=== PATIENT | female | born 1960 | race Caucasian/White ===

== ENCOUNTER 2020-08-15 16:16 | Emergency (ER) | payer MEDICARE, SELFPAY ==
[2020-08-15 16:41] VITALS: BP 146/73; PULSE 69; RESP 14; TEMP 36.3; O2SAT 98; BMI 23.6
--- NOTE | 2020-08-15 16:58 | XRR_ITS ---
PROCEDURE INFORMATION: Exam: XR Left Elbow Exam date and time: 08/15/2020 4:59 PM Age: 60 years old Clinical indication: Injury or trauma; Fall; Blunt trauma (contusions or hematomas); Elbow; Left; Additional info: Fall injury TECHNIQUE: Imaging protocol: XR Left elbow. Views: 3 or more views. COMPARISON: No relevant prior studies available. FINDINGS: Bones/joints: There is a transverse displaced fracture of the olecranon. The remainder of the visible bones do not show acute abnormality. Soft tissues: There is soft tissue effusion is seen in the posterior and medial elbow and in the olecranon bursa. XR/XR elbow LT min 3V* 10180 IMPRESSION: 1. Transverse displaced fracture of the olecranon. 2. Diffuse soft tissue effusion posterior and medial elbow
--- NOTE | 2020-08-15 17:17 | W.ED.FALL ---
Documented by User: MILKA Peguero 08/15/20 20:19 HPI - Fall General: Chief Complaint: Fall Stated Complaint: Fall/Lt elbow Swelling Time Seen by Provider: 08/15/20 17:03 Source: patient Mode of arrival: ambulatory Limitations: no limitations History of Present Illness: HPI Narrative: Patient is a nice 60-year-old female who presents to ED today for evaluation of a left elbow injury. Patient tells me she was attacked by her neighbors dog who is up-to-date on immunizations and states she accidentally tripped over the dog landing on her left elbow. She has several puncture ire[place] to her left lower leg. She does not seem concerned with these. She denies any other injury sustained during the fall. She denies striking her head or LOC. No neck or back pain. She does not complain of numbness, tingling, loss of sensation to her arm. She does tell me she feels like the hand is cooler than normal. MD complaint: fall Onset (ago): hour(s) Fall from: standing Place fall occurred: home Loss of consciousness: None Prolonged down time: no Symptoms prior to fall: none Context: tripped/slipped Location of injury - extremities: Left: elbow Associated symptoms-after fall: Denies chest pain, difficulty walking, headache(s) or neck pain Review of Systems Const: Denies: fever(s), chills, body aches, fatigue or malaise Eyes: Denies: change in vision or blurry vision Card: Denies: chest pain Resp: Denies: dyspnea GI: Denies: nausea or vomiting Musc: Reports: extremity pain, joint pain and joint swelling; Denies: neck pain or back pain Skin/Breast: Reports: other (dog bite) Neuro: Denies: headache(s), numbness in extremities, sensory changes, difficulty walking, frequent falls or dizziness Physical Exam Const: COMMON NORMALS: no acute distress, average body habitus, patient oriented x3, no limitations, healthy appearing, alert and well nourished GENERAL APPEARANCE: cooperative ORIENTATION/CONSCIOUSNESS: Yes awake, Yes oriented to person, Yes oriented to place and Yes oriented to time Extremity: OTHER: pt with marked swelling of her L distal humerus and elbow; she complains of feeling like her arm/hand are cold; radial pulses are equal bilaterally and she has good cap refill but hand does feel cooler than the R Neuro: COMMON NORMALS: patient oriented x3, moves all extremities, no focal motor deficits and no sensory deficits noted SENSORIUM/ORIENTATION: Yes alert, Yes oriented to person, Yes oriented to place and Yes oriented to time Skin: NARRATIVE SKIN EXAM: several puncture ireland to L posterior lower leg/calf from dog bite; all are extremely small 1-2mm and do not require closure Course Vital Signs: Vital signs: Vital Signs Temperature 97.3 F L 08/15/20 16:41 Pulse Rate 78 08/15/20 20:40 Respiratory Rate 14 08/15/20 16:41 Blood Pressure 136/74 08/15/20 18:21 Pulse Oximetry 95 08/15/20 20:40 MDM - Fall MDM Narrative: Medical decision making narrative: Initial exam I did feel like her left hand was cooler than her right. Radial pulses were intact and equal bilaterally. She maintained brisk cap refill. Re-examination revealed hands were equal temperature however due to initial concern I spoke to Dr. Stevens who go recommended we go ahead with CTA to evaluate for vascular injury. This was negative. Patient will need prompt follow-up with orthopedics for her olecranon fracture. Patient was placed in a splint/sling. Information placed with case management to get her proper follow-up. We will place her on antibiotics for her dog bites. Lab Data: Labs: Lab Results 08/15/20 Range/Units 18:20 Sodium 138 (136-145) mmol/L Potassium 3.9 (3.5-5.1) mmol/L Chloride 101 (98-107) mmol/L Carbon Dioxide 27 (22-29) mmol/L Anion Gap 13.9 (5-19) BUN 9 (8-23) mg/dL Creatinine 0.6 (0.5-0.9) mg/dL GFR Calculation 101.6 (90-130) mL/min Glucose 93 (65-115) mg/dL Calculated Osmolal ity 284 L (285-295) mOsm/k g Calcium 9.2 (8.5-10.5) mg/dL Imaging Data^: XR L elbow: Radiologist's impression: [address] [place] [address] XRay Report Signed Patient: Breann LoyaZaheerjuanito #: [id number] : 1960Acct#:[id number] Age/Sex: 60 / FADM Date: 08/15/20 Loc: ERRoom/Bed: Attending Dr: Ordering Provider/Ordering MD: Nabil Hawkins Date of Service: 08/15/20 Procedure(s): XR elbow LT min 3V* 73200 Accession Number(s): [id number] Report Number: [id number] PROCEDURE INFORMATION: Exam: XR Left Elbow Exam date and time: 08/15/2020 4:59 PM Age: 60 years old Clinical indication: Injury or trauma; Fall; Blunt trauma (contusions or hematomas); Elbow; Left; Additional info: Fall injury TECHNIQUE: Imaging protocol: XR Left elbow. Views: 3 or more views. COMPARISON: No relevant prior studies available. FINDINGS: Bones/joints: There is a transverse displaced fracture of the olecranon. The remainder of the visible bones do not show acute abnormality. Soft tissues: There is soft tissue effusion is seen in the posterior and medial elbow and in the olecranon bursa. XR/XR elbow LT min 3V* 01300 IMPRESSION: 1. Transverse displaced fracture of the olecranon. 2. Diffuse soft tissue effusion posterior and medial elbow Dictated By:Raghu Andrade Signed By:Zac Andrade Date/Time:08/15/201814 DD/ 13 CTA L UE: Radiologist's impression: [address] [address] [address] Scan Report Signed Patient: Breann Loya Unit #: [id number] : 1960 Age/Sex: 60 / F ADM Date: 08/15/20 Loc: ER Room/Bed: Attending Dr: Ordering Provider/Ordering MD: Abby Max Date of Service: 08/15/20 Procedure(s): [place] [address] Accession Number(s): [id number] Report Number: [id number] PROCEDURE INFORMATION: Exam: CTA Left Upper Extremity With Contrast Exam date and time: 08/15/2020 7:01 PM Age: 60 years old Clinical indication: Injury or trauma; Fall; Fracture, traumatic injury; Closed fracture; Ulna; Left; Proximal end; Additional info: Olecranon fx/hemarthrosis; Complains arm feels cold TECHNIQUE: Imaging protocol: Computed tomographic angiography of the Left upper extremity with intravenous contrast material, including non-contrast images if performed. 3D rendering (Not supervised by radiologist): MIP and/or 3D reconstructed images were created by the technologist. Total images: 423 Radiation optimization: All CT scans at this facility use at least one of these dose optimization techniques: automated exposure control; mA and/or kV adjustment per patient size (includes targeted exams where dose is matched to clinical indication); or iterative reconstruction. Contrast material: OMNIPAQUE 350; Contrast volume: 95 ml; Contrast route: INTRAVENOUS (IV); COMPARISON: CR ([facility], ) 08/15/2020 5:18 PM RADIATION DOSE METRICS: Total DLP (mGy-cm): 668.16 FINDINGS: Bones/joints: Simple comminuted avulsion fracture of the olecranon process of the ulna with intra-articular component. Maximum distraction 10 mm. No visible significant step-off. Soft tissues: Triceps tendon appears intact. Extensive soft tissue contusion and edema extensor surface of the elbow with associated traumatic olecranon bursitis. Other findings: No vascular compromise. No visible extravasation of [place]. [place] [address] IMPRESSION: 1. Simple comminuted avulsion fracture of the olecranon process of the ulna with intra-articular component. Maximum distraction 10 mm. 2. No vascular compromise identified. 3. Extensive soft tissue contusion and edema extensor surface of the elbow with associated traumatic olecranon bursitis. 4. Triceps tendon intact. Radiation Dose CTDIVOL = (mGy): DLP = 668.16 (mGy-cm) Dictated By: Alex Ann Signed By: Alex Ann Signed Date/Time: 08/15/201957 DD/ 56 Discharge Plan Discharge Patient Disposition: Home Clinical Impression: Dog bite of left lower leg Qualifiers: Encounter type: initial encounter Qualified Code(s): S81.852A - Open bite, left lower leg, initial encounter Closed fracture of left olecranon process Qualifiers: Encounter type: initial encounter Qualified Code(s): S52.022A - Displaced fracture of olecranon process without intraarticular extension of left ulna, initial encounter for closed fracture Condition: Stable Prescriptions: New hydrocodone-acetaminophen 5-325 mg tablet 1 tab PO Q4H PRN (Reason: pain) Qty: 20 RF: 0 Augmentin 875-125 mg tablet 1 tab PO Q12H 7 Days Qty: 14 RF: 0 No Action Apple Cider Vinegar Gummies 2 tab PO BID RF: 0 Entocort EC 3 mg Capsule,Delayed,Extend.Release 9 mg PO QAM RF: 0 Cymbalta 60 mg Capsule,Delayed Release(Dr/Ec) 120 mg PO QAM RF: 0 Tylenol Extra Strength 500 mg Tablet 1,000 mg PO PRN RF: 0 Discharge Orders: Discharge ED (Routine); Ordered 08/15/20 Ordered By: Abby Max Referrals: August Wright MD [Primary Care Provider] - Patient Instructions: Fractures - Elbow, Animal Bite (ED), Elbow Fracture in Adults (ED), Opioid Safety Activity Restrictions/Additional Instructions: [facility] is committed to fighting the nationwide opiate epidemic. We are providing ALL patients with information regarding opiate safety. If you received opiate pain medication during your stay or if you received a prescription for opiate pain medication-please review this handout. If not, you may disregard. Thank you. As discussed case management should contact you early this week to set you up with your follow-up appointment for orthopedics. Need to begin your antibiotics immediately to prevent infection from your dog bites. Please keep these wounds clean with warm soapy water several times daily. Signs of infection include redness, swelling, drainage, increased pain. Return to the emergency department in regards to your elbow for worsening or uncontrollable pain, color changes to your hand, loss of sensation, coolness/pallor, or any other concerns you may have. Coding Level of Care Code ED Taker Away for Roxanne Fwd Exam Expanded Problem Focused Documented by User: David Rita LaDO viviana 08/17/20 06:49 HPI - Fall General: Chief Complaint: Fall Stated Complaint: Fall/Lt elbow Swelling Time Seen by Provider: 08/15/20 17:03 Course Vital Signs: Vital signs: Vital Signs Temperature 97.3 F L 08/15/20 16:41 Pulse Rate 78 08/15/20 20:40 Respiratory Rate 14 08/15/20 16:41 Blood Pressure 136/74 08/15/20 18:21 Pulse Oximetry 95 08/15/20 20:40 MDM - Fall MDM Narrative: Medical decision making narrative: Reviewed case with nurse practitioner. Agree with assessment and plan. Lab Data: Labs: Lab Results 08/15/20 Range/Units 18:20 Sodium 138 (136-145) mmol/L Potassium 3.9 (3.5-5.1) mmol/L Chloride 101 (98-107) mmol/L Carbon Dioxide 27 (22-29) mmol/L Anion Gap 13.9 (5-19) BUN 9 (8-23) mg/dL Creatinine 0.6 (0.5-0.9) mg/dL GFR Calculation 101.6 (90-130) mL/min Glucose 93 (65-115) mg/dL Calculated Osmolal ity 284 L (285-295) mOsm/k g Calcium 9.2 (8.5-10.5) mg/dL Discharge Plan Discharge Patient Disposition: Home Clinical Impression: Dog bite of left lower leg Qualifiers: Encounter type: initial encounter Qualified Code(s): S81.852A - Open bite, left lower leg, initial encounter Closed fracture of left olecranon process Qualifiers: Encounter type: initial encounter Qualified Code(s): S52.022A - Displaced fracture of olecranon process without intraarticular extension of left ulna, initial encounter for closed fracture Condition: Stable Prescriptions: New hydrocodone-acetaminophen 5-325 mg tablet 1 tab PO Q4H PRN (Reason: pain) Qty: 20 RF: 0 Augmentin 875-125 mg tablet 1 tab PO Q12H 7 Days Qty: 14 RF: 0 No Action Apple Cider Vinegar Gummies 2 tab PO BID RF: 0 Entocort EC 3 mg Capsule,Delayed,Extend.Release 9 mg PO QAM RF: 0 Cymbalta 60 mg Capsule,Delayed Release(Dr/Ec) 120 mg PO QAM RF: 0 Tylenol Extra Strength 500 mg Tablet 1,000 mg PO PRN RF: 0 Discharge Orders: Discharge ED (Routine); Ordered 08/15/20 Ordered By: Abby Max Referrals: August Wright MD [Primary Care Provider] - Patient Instructions: Fractures - Elbow, Animal Bite (ED), Elbow Fracture in Adults (ED), Opioid Safety Activity Restrictions/Additional Instructions: [facility] is committed to fighting the nationwide opiate epidemic. We are providing ALL patients with information regarding opiate safety. If you received opiate pain medication during your stay or if you received a prescription for opiate pain medication-please review this handout. If not, you may disregard. Thank you. As discussed case management should contact you early this week to set you up with your follow-up appointment for orthopedics. Need to begin your antibiotics immediately to prevent infection from your dog bites. Please keep these wounds clean with warm soapy water several times daily. Signs of infection include redness, swelling, drainage, increased pain. Return to the emergency department in regards to your elbow for worsening or uncontrollable pain, color changes to your hand, loss of sensation, coolness/pallor, or any other concerns you may have. Coding Level of Care Code ED Taker Away for Roxanne Fwradha Exam Expanded Problem Focused
--- NOTE | 2020-08-15 17:45 | CTR_ITS ---
PROCEDURE INFORMATION: Exam: CTA Left Upper Extremity With Contrast Exam date and time: 08/15/2020 7:01 PM Age: 60 years old Clinical indication: Injury or trauma; Fall; Fracture, traumatic injury; Closed fracture; Ulna; Left; Proximal end; Additional info: Olecranon fx/hemarthrosis; Complains arm feels cold TECHNIQUE: Imaging protocol: Computed tomographic angiography of the Left upper extremity with intravenous contrast material, including non-contrast images if performed. 3D rendering (Not supervised by radiologist): MIP and/or 3D reconstructed images were created by the technologist. Total images: 423 Radiation optimization: All CT scans at this facility use at least one of these dose optimization techniques: automated exposure control; mA and/or kV adjustment per patient size (includes targeted exams where dose is matched to clinical indication); or iterative reconstruction. Contrast material: OMNIPAQUE 350; Contrast volume: 95 ml; Contrast route: INTRAVENOUS (IV); COMPARISON: CR ([facility], ) 08/15/2020 5:18 PM RADIATION DOSE METRICS: Total DLP (mGy-cm): 668.16 FINDINGS: Bones/joints: Simple comminuted avulsion fracture of the olecranon process of the ulna with intra-articular component. Maximum distraction 10 mm. No visible significant step-off. Soft tissues: Triceps tendon appears intact. Extensive soft tissue contusion and edema extensor surface of the elbow with associated traumatic olecranon bursitis. Other findings: No vascular compromise. No visible extravasation of [place]. [place] [address] IMPRESSION: 1. Simple comminuted avulsion fracture of the olecranon process of the ulna with intra-articular component. Maximum distraction 10 mm. 2. No vascular compromise identified. 3. Extensive soft tissue contusion and edema extensor surface of the elbow with associated traumatic olecranon bursitis. 4. Triceps tendon intact. Radiation Dose CTDIVOL = (mGy): DLP = 668.16 (mGy-cm)
[2020-08-15 18:21] VITALS: BP 136/74; PULSE 65; O2SAT 98
[2020-08-15 18:50] LABS: Anion Gap 13.9 (5-19); Blood Urea Nitrogen 9 mg/dL (8-23); Calcium 9.2 mg/dL (8.5-10.5); Carbon Dioxide 27 mmol/L (22-29); Chloride 101 mmol/L (98-107); Glomerular Filtration Rate 101.6 mL/min (90-130); Glucose 93 mg/dL (65-115); Osmolality Calculated 284 mOsm/kg (285-295); Potassium 3.9 mmol/L (3.5-5.1); Sodium 138 mmol/L (136-145)
[2020-08-15] MEDS: iohexol 350 mg/mL 100 mL Btl IV (19:02)
[2020-08-15] MEDS: HYDROmorphone 1 mg/mL INJ 1 mL 0.5 MG IVP (19:20)
[2020-08-15] MEDS: ondansetron 2 mg/ML SDV 2 mL 4 MG IVP (19:20)
[2020-08-15] MEDS: amoxicillin-clav 875-125 mg Tablet 1 TAB PO (20:24)
[2020-08-15 20:40] VITALS: PULSE 78; O2SAT 95
--- NOTE | 2020-08-17 08:56 | DCPLANNER ---
pe manager had message to schedule a follow up appointment for patient with ortho. pe manager called the ortho clinic, spoke with Aminata, gave clinic patients information. pe manager was told that patients information would be printed and reviewed. Clinic will call patient with appointment information.
--- NOTE | 2020-08-18 07:49 | DCPLANNER ---
Patient has a follow up appointment scheduled for Tuesday, August 18, 2020 at 8:[address] Garcia at ortho. Clinic will call patient with appointment information.
--- NOTE | 2020-08-28 08:24 | DCPLANNER ---
Patient had a follow up appointment scheduled for 08.18.20 with ortho - patient did attend appointment.
== END 2020-08-15 20:44 | disposition home or self-care (01) ==
PROVIDERS: Emergency Provider Physician Assistant; PCP Family Medicine
DX: S52.022A Displaced fracture of olecranon process without intraarticular extension of left ulna, initial encounter for closed fracture (principal); S81.852A Open bite, left lower leg, initial encounter; W54.0XXA Bitten by dog, initial encounter
CPT/HCPCS: 29125; 73080; 73206; 80048; 96374; 96375; 99283; J1170; J2405; Q9967

== ENCOUNTER → 2020-08-18 09:53 | Outpatient (BNVA) | payer MEDICARE, SELFPAY | PROVIDERS: PCP Family Medicine; Visit Provider Orthopaedic Surgery | DX: Z01.812 Encounter for preprocedural laboratory examination (principal); S52.023A Displaced fracture of olecranon process without intraarticular extension of unspecified ulna, initial encounter for closed fracture; X58.XXXA Exposure to other specified factors, initial encounter | CPT/HCPCS: 87635 ==

== ENCOUNTER 2020-08-21 05:55 | Day surgery (SDC) | payer MEDICARE, SELFPAY ==
[2020-08-20 16:13] VITALS: BMI 24.3
[2020-08-21] VITALS (11 sets, daily range): BP systolic 147–162; BP diastolic 74–99; PULSE 71–88; RESP 16–20; TEMP 36.2–36.5; O2SAT 95–97
--- NOTE | 2020-08-21 | XR_ITS ---
WS: [id number] Left elbow, C-arm fluoroscopy views, 08/21/2020 Clinical Data: orif left elbow Comparison: Left elbow, 08/15/2020. Findings: The olecranon fracture has been repaired with a posterior plate and multiple screws. There are longit udinal screws aiding the reduction. XR/XR elbow LT 2V 19530 Impression: Internal fixation of olecranon fracture of left ulna.
--- NOTE | 2020-08-21 | SCC_ITS ---
Procedure Done: ORIF left olecranon fracture 25.9 seconds of fluoroscopic guidance, for a cumulative dose of 0.69 mGy, was provided to Dr. Garcia by the radiology department. C-arm images of the LEFT elbow were saved for the patient's permanent record. [facility]
--- NOTE | 2020-08-21 06:07 | ANES.PREANE2 ---
Pre-Anesthetic Assessment Pre-Anesthetic Assessment: Height/Weight: Height 1.75 m Weight 74.843 kg Preop Diagnosis: olecranon fracture Proposed Procedure: Operation Date: 08/21/20 07:00 Proposed Procedures p ORIF left olecranon fracture 86615 s52.022a(Left) - Ben Garcia DO Social: Social History: Tobacco and No alcohol Exam: Pre-Anes Outpt Exam: alert, oriented x 3, clear to auscultation bilaterally and regular rate & rhythm Airway: Submandibular: WNL Cervical ROM: WNL MP: 2 Pulmonary: Pulmonary: COPD CV/HEM: CV/HEM: None reported : : None reported Hepatic: Hepatic: None reported GI: GI: None reported Metabolic: Metabolic: None reported Musc/skel: Musc/skel: OA/DJD Neuropsych: Neuropsych: Depression Anesthetic Plan: ASA status: 3 Anesthesia: General PFSH Anesthesia PFSH: Social History (Updated 08/18/20 @ 08:54 by Yusra Lux LPN) Smoking and tobacco status: current every day smoker cigarettes Packs smoked per day: 0.5 Alcohol intake: current Alcohol intake frequency: holidays/special occasions only Data Anesthesia Cardiac Studies: No Data to Display
[2020-08-21] MEDS: sodium chloride 0.9% 1,000 ML 30 ML IV (06:38)
--- NOTE | 2020-08-21 06:40 | W.PM.OPSUD ---
Surgery/Procedure H&P Update DATE OF PROCEDURE: August 21, 2020 DATE H&P PERFORMED: 08/13/20 H&P UPDATE INFORMATION: I have reviewed H&P completed within last 30 days, I have examined patient prior to procedure and No changes to prior documentation PREOP DIAGNOSIS: olecranon fracture PLANNED PROCEDURE: Operation Date: 08/21/20 07:00 Proposed Procedures p ORIF left olecranon fracture 91095 s52.022a(Left) - Ben Garcia DO
--- NOTE | 2020-08-21 08:10 | PM.OP ---
Operative Report Date of procedure: August 21, 2020 Pre-op Diagnosis: olecranon fracture Post-op diagnosis: same Procedure Done: ORIF left olecranon fracture Surgeon: Ben Garcia Anesthesia: General Estimated blood loss (mL): 5 Tourniquet time (min): 30 Condition: stable Disposition: PACU Procedure: Patient was brought to the operative suite after undergoing anesthesia was placed into the lateral decubitus position. All areas impingement were well-padded. Patient was then prepped and draped normal sterile fashion. Skin incision made over the posterior aspect of the arm. Olecranon was exposed fracture ends were exposed fracture was then reduced with [id number] reduction clamps and then K wires. And then a [employer] olecranon plate was placed. 3 screws were placed through the proximal fragment and 3 screws placed for the distal fragment. AP and lateral fluoroscopy ensured that the fracture and hardware in the prone position. K wires were removed and patient was brought through full range of motion felt to be stable. Wound was then irrigated and closed with Vicryl and nylon suture. Sterile dressings were applied and patient was placed in a posterior splint transferred to the PACU in stable condition.
[2020-08-21] MEDS: fentaNYL 50 mcg/mL INJ 2mL IVP ×2 (08:29→08:34)
[2020-08-21] MEDS: ketorolac 30 mg/mL INJ (08:36)
[2020-08-21] MEDS: HYDROmorphone 1 mg/mL INJ 1 mL 0.5 MG IVP (08:36)
--- NOTE | 2020-08-21 08:50 | ANE.PACU2 ---
Inpatient post-anesthesia follow up: Airway intact: Yes Vital signs: Temperature 97.7 F Pulse Rate 76 Respiratory Rate 19 Blood Pressure 148/94 Pulse Oximetry 97 Oxygen Delivery Me thod Room Air Oxygen Flow Rate 6 Fraction of Inspir ed Oxygen Hydration adequate: Yes Nausea and vomiting: No Pain level: 4 Mental status: Baseline
[2020-08-21] MEDS: HYDROcodone-acetaminophen 5-325 mg Tablet 2 TAB PO (09:20)
--- NOTE | 2020-08-21 10:43 | SUR.PHASEII ---
0955: patient states her pain is at 8/10, but has taken 2 pain pills, ice is applied, patient pain 4/10 per faces and she states she is comfortable enough to go home.
== END 2020-08-21 10:10 | disposition home or self-care (01) ==
PROVIDERS: PCP Family Medicine; Visit Provider Orthopaedic Surgery
PROC: (CPT 24685; principal; 2020-08-21 07:00)
DX: S52.022A Displaced fracture of olecranon process without intraarticular extension of left ulna, initial encounter for closed fracture (principal); W01.0XXA Fall on same level from slipping, tripping and stumbling without subsequent striking against object, initial encounter; J44.9 Chronic obstructive pulmonary disease, unspecified; M19.90 Unspecified osteoarthritis, unspecified site; F17.210 Nicotine dependence, cigarettes, uncomplicated
CPT/HCPCS: 24685; 73070; 76000; C1713; J0690; J1170; J1885; J2405; J2704; J3010; J7030

== ENCOUNTER → 2020-10-01 11:21 | Outpatient (BNVA) | payer MEDICARE, SELFPAY | PROVIDERS: PCP Family Medicine; Visit Provider Orthopaedic Surgery | DX: Z48.89 Encounter for other specified surgical aftercare; S52.022D Displaced fracture of olecranon process without intraarticular extension of left ulna, subsequent encounter for closed fracture with routine healing; X58.XXXD Exposure to other specified factors, subsequent encounter | CPT/HCPCS: 73080 ==

== ENCOUNTER 2020-10-13 06:00 | Outpatient (RCR) | payer MEDICARE, SELFPAY | END 2020-11-09 23:59 | disposition home or self-care (01) | LOC: GOT 06:00 | PROVIDERS: PCP Family Medicine; Referring Provider Orthopaedic Surgery; Visit Provider Orthopaedic Surgery | DX: S52.021D Displaced fracture of olecranon process without intraarticular extension of right ulna, subsequent encounter for closed fracture with routine healing (principal); X58.XXXD Exposure to other specified factors, subsequent encounter; Z47.89 Encounter for other orthopedic aftercare; Z98.890 Other specified postprocedural states | CPT/HCPCS: 97035; 97110; 97140; 97166 ==

== ENCOUNTER 2020-11-10 06:00 | Outpatient (RCR) | payer MEDICARE, SELFPAY | END 2020-12-09 23:59 | disposition home or self-care (01) | LOC: GOT 06:00 | PROVIDERS: PCP Family Medicine; Referring Provider Orthopaedic Surgery; Visit Provider Orthopaedic Surgery | DX: Z47.89 Encounter for other orthopedic aftercare (principal) | CPT/HCPCS: 97035; 97110; 97140 ==

== ENCOUNTER → 2020-11-12 11:24 | Outpatient (BNVA) | payer MEDICARE, SELFPAY | PROVIDERS: PCP Family Medicine; Visit Provider Orthopaedic Surgery | DX: Z48.89 Encounter for other specified surgical aftercare; S52.022A Displaced fracture of olecranon process without intraarticular extension of left ulna, initial encounter for closed fracture; X58.XXXA Exposure to other specified factors, initial encounter | CPT/HCPCS: 73080 ==

== ENCOUNTER 2020-12-10 06:00 | Outpatient (RCR) | payer MEDICARE, SELFPAY | END 2021-01-09 23:59 | disposition home or self-care (01) | LOC: GOT 06:00 | PROVIDERS: PCP Family Medicine; Referring Provider Orthopaedic Surgery; Visit Provider Orthopaedic Surgery | DX: S52.022D Displaced fracture of olecranon process without intraarticular extension of left ulna, subsequent encounter for closed fracture with routine healing (principal); X58.XXXD Exposure to other specified factors, subsequent encounter | CPT/HCPCS: 97035; 97110; 97140 ==

== ENCOUNTER → 2020-12-24 10:10 | Outpatient (BNVA) | payer MEDICARE, SELFPAY | PROVIDERS: PCP Family Medicine; Visit Provider Orthopaedic Surgery | DX: S52.023A Displaced fracture of olecranon process without intraarticular extension of unspecified ulna, initial encounter for closed fracture (principal); S52.022A Displaced fracture of olecranon process without intraarticular extension of left ulna, initial encounter for closed fracture; Z48.89 Encounter for other specified surgical aftercare; M79.602 Pain in left arm; X58.XXXA Exposure to other specified factors, initial encounter | CPT/HCPCS: 73080 ==

== ENCOUNTER 2021-01-04 12:42 | Outpatient (CLI) | payer MEDICARE, SELFPAY ==
--- NOTE | 2021-01-04 13:00 | CT_ITS ---
WS: [id number] Exam: CT humerus LT wo con* [id number] Date/Time of Exam: 01/04/2021 12:47 PM Reason For Exam: M79.602 - Pain in left arm DLP: All CT scans at [facility] use at least one of these dose optimization techniques: automat ed exposure control; mA and/or kV adjustment per patient size (includes targeted exams where dose is matched to clinical indication); or iterative reconstruction. The humerus is evaluated in the axial plane with sagittal and coronal reformatted images. No fracture or dislocation. No bone destruction identified. Articular relationships are intact. No so ft tissue masses or abnormal soft tissue fluid collections are seen. Hardware is noted in the proxima l posterior ulna. CT/CT humerus LT wo con* [id number] IMPRESSION: 1. No fracture or other significant finding. 2. No significant myofascial or other soft tissue abnormality. 3. Hardware noted in the proximal posterior ulna.
== END 2021-01-04 12:43 | disposition home or self-care (01) ==
PROVIDERS: PCP Family Medicine; Visit Provider Orthopaedic Surgery
DX: M79.602 Pain in left arm (principal)
CPT/HCPCS: 73200

== ENCOUNTER → 2021-08-10 14:54 | Outpatient (BNVA) | payer MEDICARE, SELFPAY | PROVIDERS: PCP Family Medicine; Visit Provider Orthopaedic Surgery | DX: S52.022D Displaced fracture of olecranon process without intraarticular extension of left ulna, subsequent encounter for closed fracture with routine healing (principal); W19.XXXD Unspecified fall, subsequent encounter | CPT/HCPCS: 73080 ==

== ENCOUNTER 2022-03-29 13:29 | Outpatient (CLI) | payer MEDICARE, SELFPAY ==
--- NOTE | 2022-03-29 | XRR_ITS ---
PROCEDURE INFORMATION: Exam: XR Cervical Spine Exam date and time: 03/29/2022 1:51 PM Age: 61 years old Clinical indication: Neck pain; Prior surgery; Surgery type: C spine; Patient HX: History-- kink in neck for 5 days, pain from shoulder blade to neck TECHNIQUE: Imaging protocol: Radiologic exam of the cervical spine. Views: 2 or 3 views. COMPARISON: No relevant prior studies available. FINDINGS: Bones/joints: Prior anterior cervical fusion from C5 to C7. Curvature of the upper cervical spine convex to the right The cervical vertebral bodies maintain height and sagittal alignment. Fusion at the C5-C6 and C6-C7 disc spaces. Mild disc and uncovertebral joint degeneration at C3-C4 and C4-C5. The atlantodens interval is not widened. No fracture. Soft tissues: No prevertebral soft tissue swelling. XR/XR cervical spine 3V* [id number] IMPRESSION: Postoperative and degenerative changes.
== END 2022-03-29 13:30 | disposition home or self-care (01) ==
LOC: RAD 13:31
PROVIDERS: PCP Family Medicine; Visit Provider Family Medicine
DX: M54.2 Cervicalgia (principal); Z98.1 Arthrodesis status
CPT/HCPCS: 72040

== ENCOUNTER → 2023-04-10 11:54 | Outpatient (BNVA) | payer MEDICARE, SELFPAY | PROVIDERS: PCP Family Medicine; Visit Provider Specialist | DX: R20.0 Anesthesia of skin; R20.2 Paresthesia of skin; M75.02 Adhesive capsulitis of left shoulder | CPT/HCPCS: 73030; 99204 ==

== ENCOUNTER 2023-04-28 13:40 | Outpatient (CLI) | payer MEDICARE, SELFPAY ==
--- NOTE | 2023-04-28 13:45 | IR_ITS ---
WS: [id number] LEFT SHOULDER ARTHROGRAM UNDER FLUOROSCOPY. PRIOR TO CT EVALUATION. HISTORY: left shoulder pain COMPARISON: None available. FLUOROSCOPY TIME: 1min [id number] # of spot films: 1 Procedure, risks and complications were explained to the patient. Consent has been obtained. Under fluoroscopic guidance the skin is marked over the medial superior third of the humeral head, cl eansed with ChloraPrep and anesthetized with lidocaine. 22-gauge spinal needle is inserted to the cor amish of the humeral head. Approximately 12 cc of Omnipaque were injected without difficulty. No compli cations. IMPRESSION: Uncomplicated LEFT shoulder shoulder joint injection prior to CT.
--- NOTE | 2023-04-28 13:45 | CT_ITS ---
WS: [id number] CT LEFT SHOULDER ARTHROGRAM HISTORY: left shoulder pain Technique: All CT scans at [facility] use at least one of these dose optimization techniques: automated exposure control; mA and/or kV adjustment per patient size (includes targeted exams where dose is matched to clinical indication); or iterative reconstruction. DLP: 295.28 mGy.cm COMPARISON: 02/22/2023. Contrast was injected into the LEFT shoulder joint under fluoroscopy. There is good contrast opacification of the LEFT shoulder joint. No fractures or dislocations are garcía ntified. There is no contrast extending from the intra-articular injection into the subacromial or madsen bdeltoid spaces. There is mild narrowing of the AC joint with small osteophytes encroaching upon the supraspinatus muscle anteriorly. Very mild acromial impingement. Distal acromion without significant impingement and no downsloping. There is no significant muscle atrophy. There is a very tiny amount of contrast extending into the madsen perior labrum. This may represent a very small tear which extends just slightly anteriorly through th e labrum. No joint effusion. Biceps tendon is in good position. IMPRESSION: 1. No rotator cuff tear. No contrast extends into the subacromial or subdeltoid bursa. 2. Very minimal AC joint osteophyte encroachment upon the supraspinatus. 3. No significant subacromial impingement. 4. There is a tiny amount of increased contrast in the superior labrum with slight extension anterior ly. Suspicious for short labral tear
== END 2023-04-28 13:41 | disposition home or self-care (01) ==
LOC: RAD 13:41
PROVIDERS: PCP Family Medicine; Visit Provider Specialist
DX: M25.512 Pain in left shoulder (principal)
CPT/HCPCS: 23350; 73201; 77002; Q9966

== ENCOUNTER → 2023-05-01 09:40 | Outpatient (BNVA) | payer MEDICARE, SELFPAY | PROVIDERS: PCP Family Medicine; Visit Provider Nurse Practitioner | DX: M25.812 Other specified joint disorders, left shoulder (principal); M25.512 Pain in left shoulder; G89.29 Other chronic pain; M19.012 Primary osteoarthritis, left shoulder | CPT/HCPCS: 99214 ==

== ENCOUNTER → 2023-06-16 09:08 | Outpatient (BNVA) | payer MEDICARE, SELFPAY | PROVIDERS: PCP Family Medicine; Visit Provider Specialist | DX: G56.10 Other lesions of median nerve, unspecified upper limb (principal); M25.812 Other specified joint disorders, left shoulder; M25.512 Pain in left shoulder; R20.0 Anesthesia of skin | CPT/HCPCS: 95911 ==

== ENCOUNTER 2023-07-27 06:00 | Outpatient (RCR) | payer MEDICARE, SELFPAY | END 2023-08-10 23:59 | disposition home or self-care (01) | LOC: GPT 06:00 | PROVIDERS: Visit Provider Orthopaedic Surgery Adult Reconstructive Orthopaedic Surgery | DX: S43.432D Superior glenoid labrum lesion of left shoulder, subsequent encounter (principal); M19.012 Primary osteoarthritis, left shoulder; M75.112 Incomplete rotator cuff tear or rupture of left shoulder, not specified as traumatic; X58.XXXD Exposure to other specified factors, subsequent encounter | CPT/HCPCS: 97110; 97140; 97162; 97535 ==

== ENCOUNTER 2023-08-11 06:00 | Outpatient (RCR) | payer MEDICARE, SELFPAY | END 2023-09-10 23:59 | disposition home or self-care (01) | LOC: GPT 06:00 | PROVIDERS: Visit Provider Orthopaedic Surgery Adult Reconstructive Orthopaedic Surgery | DX: M75.22 Bicipital tendinitis, left shoulder (principal); M75.82 Other shoulder lesions, left shoulder; M25.512 Pain in left shoulder; G89.29 Other chronic pain | CPT/HCPCS: 97032; 97110 ==

== ENCOUNTER 2023-10-12 06:00 | Outpatient (RCR) | payer MEDICARE, SELFPAY | END 2023-11-10 23:59 | disposition home or self-care (01) | LOC: GPT 06:00 | PROVIDERS: Visit Provider Nurse Practitioner Family | DX: Z98.890 Other specified postprocedural states (principal) | CPT/HCPCS: 97110; 97140; 97162 ==

== ENCOUNTER 2023-11-11 06:00 | Outpatient (RCR) | payer MEDICARE, SELFPAY | END 2023-12-10 23:59 | disposition home or self-care (01) | LOC: GPT 06:00 | PROVIDERS: Visit Provider Nurse Practitioner Family | DX: Z47.89 Encounter for other orthopedic aftercare (principal) | CPT/HCPCS: 97110; 97112 ==

== ENCOUNTER 2023-12-11 06:00 | Outpatient (RCR) | payer MEDICARE, SELFPAY | END 2024-01-10 23:59 | disposition home or self-care (01) | LOC: GPT 06:00 | PROVIDERS: Visit Provider Nurse Practitioner Family | DX: Z98.890 Other specified postprocedural states (principal) | CPT/HCPCS: 97110; 97112; 97164 ==